=== PATIENT | female | born 1985 | race African-American/Black ===

== ENCOUNTER 2020-09-27 14:47 | Emergency (ER) | payer OTHER ==
[2020-09-27] MEDS ORDERED: ACETAMINOPHEN 500 MG TABLET (FP) PO ONE (15:00)
[2020-09-27] MEDS ORDERED: ACETAMINOPHEN 325 MG TABLET (FP) ONE (15:00)
[2020-09-27] MEDS ORDERED: SODIUM CHLORIDE 0.9% 500 ML INFUS.BAG IV ONE (15:03)
[2020-09-27 15:09] VITALS: TEMP 99.3; BMI 28.5
[2020-09-27 15:24] LABS: BASO % 0.5 % (0-2.0); EOS % 0.8 % (0-4.5); HEMATOCRIT 24.9 % (32.4-45.2); HEMOGLOBIN 8.8 GM/dL (10.7-15.3); LYMPH % 15.4 % (8-40); MCH 29.3 pg (25.7-33.7); MCHC 35.4 g/dl (32.0-36.0); MEAN CELL VOLUME 82.7 fl (80-96); MEAN PLT VOLUME 8.3 fl (7.5-11.1); MONO % 6.7 % (3.8-10.2); NEUT % 76.6 % (42.8-82.8); PLATELET COUNT 273 K/MM3 (134-434); RBC 3.01 M/mm3 (3.60-5.2)
[2020-09-27 15:48] LABS: CALCIUM 8.9 mg/dL (8.5-10.1)
[2020-09-27 15:49] LABS: BLOOD UREA NITROGEN 6.4 mg/dL (7-18)
[2020-09-27 15:52] LABS: CREATININE 0.6 mg/dL (0.55-1.3)
[2020-09-27 15:53] LABS: BILIRUBIN,TOTAL 0.5 mg/dL (0.2-1)
[2020-09-27 15:55] LABS: TOT PROT 6.5 g/dl (6.4-8.2)
[2020-09-27 16:53] LABS: EPI CELLS 36 /uL (0-25.1); HYALINE CASTS 1 /uL (0-3.1); URINE APPEARANCE CLEAR; URINE BACTERIA 204 /uL (0-1359); URINE BILIRUBIN NEGATIVE (NEGATIVE); URINE COLOR DK YELLOW; URINE GLUCOSE (UA) NEGATIVE (NEGATIVE); URINE KETONE TRACE (NEGATIVE); URINE LEUK ESTERASE TRACE (NEGATIVE); URINE NITRITE NEGATIVE (NEGATIVE); URINE PROTEIN 2+ (NEGATIVE); URINE WBC 14 /uL (0-25.8)
[2020-09-27 17:08] LABS: URINE RBC 67.4 /uL (0-23.9)
[2020-09-27 17:57] VITALS: BP 104/69; PULSE 88
[2020-09-28 10:07] LABS: SARS-CoV-2 NAA Not Detected (Not Detected)
== END 2020-09-27 17:57 | disposition home or self-care (01) ==
LOC: JER 14:47
DX: J06.9 Acute upper respiratory infection, unspecified (principal)
CPT/HCPCS: 36415; 71045-TC-FY; 80053; 81003; 85025; 87086; 87880; 99284-25; C9803; U0003; U0005

== ENCOUNTER 2020-11-30 06:30 | Inpatient (IN) | payer OTHER ==
[2020-11-30] MEDS ORDERED: CITRIC ACID/SODIUM CITRATE 30 ML UNIT-DOSE CUP PO ONE (07:08)
[2020-11-30] MEDS ORDERED: ACETAMINOPHEN 325 MG TABLET (FP) PO PRN (07:09)
[2020-11-30] MEDS ORDERED: BENZOCAINE 28 GM HEMORRHOIDAL OINTMENT TP PRN (07:09)
[2020-11-30] MEDS ORDERED: METHYLERGONOVINE MALEATE 0.2 MG/1 ML AMP IM PRN (07:09)
[2020-11-30] MEDS ORDERED: WITCH HAZEL 50% (TUCKS) 40 PAD/JAR PAD TP PRN (07:09)
[2020-11-30] MEDS ORDERED: BENZOCAINE 20% 57 GM BOTTLE TP PRN (07:09)
[2020-11-30] MEDS ORDERED: IBUPROFEN 800 MG/8 ML IJ IVPB PRN (07:09)
[2020-11-30] MEDS ORDERED: ELECTROLYTE-148 SOLN 1,000 ML IV SCH (07:15)
[2020-11-30] MEDS ORDERED: OXYTOCIN 20 UNITS in 0.9% NS 20 UNIT/1,000 ML INFUS.BAG IV SCH (07:15)
[2020-11-30 09:20] VITALS: BMI 32.4
[2020-11-30] MEDS ORDERED: ePHEDrine SULFATE 50 MG/1 ML AMPULE ONE (11:14)
[2020-11-30] MEDS ORDERED: ONDANSETRON 4 MG/2 ML VIAL ONE ×2 (11:15→11:50)
[2020-11-30] MEDS ORDERED: PHENYLEPHRINE HCL 10 MG/1 ML SINGLE DOSE VIAL ONE (11:15)
[2020-11-30] MEDS ORDERED: KETOROLAC TROMETHAMINE 30 MG/1 ML VIAL ONE (11:15)
[2020-11-30] MEDS ORDERED: OXYTOCIN 10 UNITS/ML VIAL ONE (11:15)
[2020-11-30] MEDS ORDERED: CLINDAMYCIN PHOSPHATE 600 MG/4 ML VIAL ONE (11:15)
[2020-11-30] MEDS ORDERED: SUCCINYLCHOLINE CHLORIDE 200 MG/10 ML SYRINGE ONE (11:48)
[2020-11-30] MEDS ORDERED: PROPOFOL 20 ML ONE ×2 (11:49)
[2020-11-30] MEDS ORDERED: GENTAMICIN SO4 80 MG/2 ML VIAL ONE (11:54)
[2020-11-30] MEDS ORDERED: AZITHROMYCIN IVPB 500 MG/250 ML BAG IVPB ONE (11:55)
[2020-11-30] MEDS ORDERED: LIDOCAINE HCL/PF 2% SDV 5ML VIAL ONE (11:57)
[2020-11-30] MEDS ORDERED: TRIAMCINOLONE ACET 40MG/1ML VIAL IM ONE (12:15)
[2020-11-30 13:01] LABS: CORD BASE EXCESS -4.7 mmol/L (0-2); CORD HCO3 23.7 mmHg (20-29); CORD PCO2 57.5 mmHg (30-78); CORD pH 7.233 (7.14-7.44)
[2020-11-30 13:03] LABS: CORD BASE EXCESS -3.3 mmol/L (0-2); CORD HCO3 22.4 mmHg (20-29); CORD PCO2 42.3 mmHg (30-78); CORD pH 7.341 (7.14-7.44)
[2020-11-30] MEDS: IBUPROFEN 800 MG/8 ML IJ IVPB PRN (17:46)
[2020-12-01] MEDS: IBUPROFEN 800 MG/8 ML IJ IVPB PRN ×2 (01:39→08:45)
[2020-12-01] MEDS: SIMETHICONE 80 MG TAB.CHEW (FP) PO PRN ×2 (04:37→18:35)
[2020-12-01] MEDS ORDERED: oxyCODONE HCL 5 MG TABLET PO PRN (07:09)
[2020-12-01] MEDS ORDERED: BISACODYL 10 MG SUPP.RECT RC PRN (07:09)
[2020-12-01 08:44] LABS: BASO % 0.6 % (0-2.0); EOS % 0.6 % (0-4.5); HEMATOCRIT 22.7 % (32.4-45.2); HEMOGLOBIN 7.9 GM/dL (10.7-15.3); LYMPH % 14.3 % (8-40); MCH 29.2 pg (25.7-33.7); MCHC 34.8 g/dl (32.0-36.0); MEAN CELL VOLUME 83.9 fl (80-96); MEAN PLT VOLUME 8.7 fl (7.5-11.1); MONO % 6.5 % (3.8-10.2); PLATELET COUNT 257 10^3/uL (134-434); RBC 2.71 M/mm3 (3.60-5.2); RDW 13.2 % (11.6-15.6); WHITE BLOOD COUNT 9.2 K/mm3 (4.0-10.0)
[2020-12-01] MEDS ORDERED: DIPHTH,PERTUSS(ACELL),TET 0.5 ML DISP.SYRIN IM ONE (09:00)
[2020-12-01] MEDS: PRENATAL VITAMINS W/ FOLIC ACID TABLET (FP) PO SCH (09:22)
[2020-12-01] MEDS: FERROUS SO4 325 MG TABLET (FP) PO SCH ×2 (09:22→21:42)
[2020-12-01] MEDS: oxyCODONE HCL 5 MG TABLET PO PRN ×2 (18:35→21:41)
[2020-12-02] MEDS: IBUPROFEN 600 MG TABLET (FP) PO PRN (05:27)
[2020-12-02] MEDS: FERROUS SO4 325 MG TABLET (FP) PO SCH ×2 (09:53→23:04)
[2020-12-02] MEDS: PRENATAL VITAMINS W/ FOLIC ACID TABLET (FP) PO SCH (09:53)
[2020-12-02 10:44] LABS: BASO % 0.7 % (0-2.0); EOS % 1.2 % (0-4.5); HEMATOCRIT 19.5 % (32.4-45.2); LYMPH % 18.5 % (8-40); MCH 29.3 pg (25.7-33.7); MCHC 35.3 g/dl (32.0-36.0); MEAN CELL VOLUME 83.2 fl (80-96); MEAN PLT VOLUME 7.9 fl (7.5-11.1); MONO % 7.9 % (3.8-10.2); NEUT % 71.7 % (42.8-82.8); PLATELET COUNT 273 10^3/uL (134-434); RBC 2.35 M/mm3 (3.60-5.2); RDW 13.3 % (11.6-15.6); WHITE BLOOD COUNT 9.2 K/mm3 (4.0-10.0)
[2020-12-02 10:54] LABS: HEMOGLOBIN 6.9 GM/dL (10.7-15.3)
[2020-12-02] MEDS: SIMETHICONE 80 MG TAB.CHEW (FP) PO PRN ×2 (16:31→23:04)
[2020-12-02] MEDS: oxyCODONE HCL 5 MG TABLET PO PRN (16:31)
[2020-12-03 08:25] LABS: BASO % 0.8 % (0-2.0); EOS % 1.6 % (0-4.5); HEMATOCRIT 26.3 % (32.4-45.2); HEMOGLOBIN 9.3 GM/dL (10.7-15.3); MCH 29.6 pg (25.7-33.7); MCHC 35.5 g/dl (32.0-36.0); MEAN CELL VOLUME 83.4 fl (80-96); MEAN PLT VOLUME 8.2 fl (7.5-11.1); MONO % 6.9 % (3.8-10.2); NEUT % 71.7 % (42.8-82.8); PLATELET COUNT 306 10^3/uL (134-434); RBC 3.15 M/mm3 (3.60-5.2); RDW 13.1 % (11.6-15.6); WHITE BLOOD COUNT 10.2 K/mm3 (4.0-10.0)
[2020-12-03] MEDS: SIMETHICONE 80 MG TAB.CHEW (FP) PO PRN (08:30)
[2020-12-03] MEDS: IBUPROFEN 600 MG TABLET (FP) PO PRN (08:30)
[2020-12-03] MEDS: PRENATAL VITAMINS W/ FOLIC ACID TABLET (FP) PO SCH (10:36)
[2020-12-03] MEDS: FERROUS SO4 325 MG TABLET (FP) PO SCH (10:36)
[2020-12-03 11:24] VITALS: BP 118/67; PULSE 87; TEMP 98.5
== END 2020-12-03 16:15 | disposition home or self-care (01) | DRG 540 ==
LOC: JLDR 06:30 → J3W 15:21
PROVIDERS: ADMIT Obstetrics & Gynecology; ATTEND Obstetrics & Gynecology
PROC: 10D00Z1 Extraction of Products of Conception, Low, Open Approach (ICD-10-PCS; 2020-11-30)
PROC: 30233N1 Transfusion of Nonautologous Red Blood Cells into Peripheral Vein, Percutaneous Approach (ICD-10-PCS; principal; 2020-12-02)
DX: O34.29 Maternal care due to uterine scar from other previous surgery (principal); Z3A.38 38 weeks gestation of pregnancy; Z37.0 Single live birth; O99.214 Obesity complicating childbirth; O99.03 Anemia complicating the puerperium; D64.9 Anemia, unspecified; O69.81X0 Labor and delivery complicated by cord around neck, without compression, not applicable or unspecified
CPT/HCPCS: 36415; 36430; 36600; 80053; 80076; 81003; 82803; 84702; 84703; 85025; 85610; 85730; 86780; 86850; 86900; 86901; 86922; 88307-TC; 90715; C9803; P9058; U0003; U0005

== ENCOUNTER 2022-12-16 10:23 | Emergency (ER) | payer OTHER ==
[2022-12-16 10:34] VITALS: BMI 21.7
[2022-12-16] MEDS ORDERED: LACTATED RINGERS SOLUTION 1000 ML INFUS.BAG IV ONE (11:29)
[2022-12-16] MEDS ORDERED: ACETAMINOPHEN 1000 MG/100 ML BAG IVPB ONE (11:29)
[2022-12-16] MEDS ORDERED: METOCLOPRAMIDE HCL INJECTION 10 MG/2 ML VIAL IVPB ONE (11:32)
[2022-12-16] MEDS ORDERED: ACETAMINOPHEN INJECTION 100 ML IVPB ONE (11:43)
[2022-12-16] MEDS ORDERED: METOCLOPRAMIDE HCL INJECTION 10 MG/2 ML VIAL ONE (11:43)
[2022-12-16 12:33] LABS: BASO % 1.4 % (0-2.0); EOS % 0.1 % (0-4.5); HEMATOCRIT 32.4 % (32.4-45.2); LYMPH % 23.1 % (8-40); MCH 27.3 pg (25.7-33.7); MCHC 33.8 g/dl (32.0-36.0); MEAN CELL VOLUME 80.8 fl (80-96); MEAN PLT VOLUME 8.3 fl (7.5-11.1); NEUT % 68.4 % (42.8-82.8); PLATELET COUNT 292 10^3/uL (134-434); RBC 4.02 M/mm3 (3.60-5.2); RDW 13.2 % (11.6-15.6); WHITE BLOOD COUNT 5.3 K/mm3 (4.0-10.0)
[2022-12-16 12:39] LABS: INR 1.1 (0.83-1.09); PROTHROMBIN TIME (PATIENT) 12.8 SEC (9.7-13.0)
[2022-12-16 12:42] LABS: ACTIVATED PTT 27.8 SECONDS (25.2-36.5)
[2022-12-16 12:55] LABS: POTASSIUM 4.1 mmol/L (3.5-5.1)
[2022-12-16 12:59] LABS: ALBUMIN 3.7 g/dl (3.4-5.0); BLOOD UREA NITROGEN 7.8 mg/dL (7-18); MAGNESIUM 1.8 mg/dL (1.8-2.4)
[2022-12-16 13:01] LABS: CREATININE 0.7 mg/dL (0.55-1.3)
[2022-12-16 13:03] LABS: TOT PROT 7.3 g/dl (6.4-8.2)
[2022-12-16 13:04] LABS: BILIRUBIN,TOTAL 0.5 mg/dL (0.2-1)
[2022-12-16 14:18] LABS: URINE APPEARANCE CLEAR; URINE BILIRUBIN NEGATIVE (NEGATIVE); URINE COLOR YELLOW; URINE GLUCOSE (UA) NEGATIVE (NEGATIVE); URINE KETONE NEGATIVE (NEGATIVE); URINE LEUK ESTERASE NEGATIVE (NEGATIVE); URINE NITRITE NEGATIVE (NEGATIVE); URINE PROTEIN NEGATIVE (NEGATIVE); URINE UROBILINOGEN 0.2 mg/dL (0.2-1.0)
[2022-12-16] MEDS ORDERED: KETOROLAC TROMETHAMINE 15 MG/ML VIAL IVPUSH ONE (17:07)
[2022-12-16 17:12] VITALS: BP 105/72; PULSE 80; RESP 18; TEMP 98.1
[2022-12-16] MEDS ORDERED: KETOROLAC TROMETHAMINE 15 MG/ML VIAL ONE (17:14)
== END 2022-12-16 21:33 | disposition home or self-care (01) ==
LOC: JER 10:23
PROC: 3E033GC Introduction of Other Therapeutic Substance into Peripheral Vein, Percutaneous Approach (ICD-10-PCS; principal; 2022-12-16)
PROC: 3E033GC Introduction of Other Therapeutic Substance into Peripheral Vein, Percutaneous Approach (ICD-10-PCS; 2022-12-16)
PROC: 3E033GC Introduction of Other Therapeutic Substance into Peripheral Vein, Percutaneous Approach (ICD-10-PCS; 2022-12-16)
DX: M54.2 Cervicalgia (principal); R51.9 Headache, unspecified; R53.1 Weakness
CPT/HCPCS: 0241U-QW; 36415; 70450-TC; 70544-TC; 70551-TC; 71045-TC-FY; 76801-TC; 80053; 81003; 82962; 83605; 83735; 84702; 84703; 85025; 85610; 85730; 86850; 86900; 86901; 87040; 87086; 93005; 93010; 99285-25

== ENCOUNTER 2024-10-28 15:11 | Emergency (ER) | payer OTHER ==
[2024-10-28 15:49] VITALS: BP 117/75; PULSE 84; RESP 16; TEMP 98.5; BMI 31.8
[2024-10-28 17:12] LABS: ABSOLUTE IMMATURE GRANULOCYTES 0.01 x10^3/uL (0.0-0.031); BASOPHILS # 0.08 x10^3/uL (0.01-0.08); EOSINOPHIL % 1.5 % (0.7-5.8); EOSINOPHILS # 0.11 x10^3/uL (0.04-0.36); MCHC 33.7 g/dl (32.2-35.5); MEAN CELL VOLUME 80.4 fl (79.4-94.8); MEAN PLT VOLUME 10.3 fl (9.4-12.3); MONOCYTE # 0.54 x10^3/uL (0.24-0.86); MONOCYTE % 7.4 % (4.7-12.5); RDW 13.5 % (12.1-16.8)
[2024-10-28 17:16] LABS: EPI CELLS 25 /uL (0-25.1); HYALINE CASTS 0 /uL (0-3.1); URINE APPEARANCE CLOUDY; URINE BACTERIA 239 /uL (0-1359); URINE BILIRUBIN NEGATIVE (NEGATIVE); URINE COLOR DK YELLOW; URINE GLUCOSE (UA) NEGATIVE (NEGATIVE); URINE KETONE TRACE (NEGATIVE); URINE LEUK ESTERASE TRACE (NEGATIVE); URINE NITRITE NEGATIVE (NEGATIVE); URINE PROTEIN 1+ (NEGATIVE); URINE RBC 3317 /uL (0-23.9); URINE UROBILINOGEN 1.0 mg/dL (0.2-1.0); URINE WBC 28 /uL (0-25.8)
[2024-10-28 17:58] LABS: CO2 28.0 mmol/L (21-32); GLUCOSE,RANDOM 92.0 mg/dL (74-106)
[2024-10-28 18:01] LABS: CREATININE 0.7 mg/dL (0.55-1.3); SGPT/ALT 16.0 U/L (13-61)
[2024-10-28 18:03] LABS: SGOT/AST 13.0 U/L (15-37); TOT PROT 7.4 g/dl (6.4-8.2)
[2024-10-28 18:04] LABS: ALK PHOS 66.0 U/L (45-117)
[2024-10-28 19:10] LABS: HCV DIAGNOSTIC IN-HOUSE W/RFLX NON-REACTIVE (NONREACTIVE)
[2024-10-28 19:11] LABS: HIV INTERPRETATION NEGATIVE (NEGATIVE)
== END 2024-10-28 18:52 | disposition home or self-care (01) ==
LOC: JER 15:11
DX: O03.9 Complete or unspecified spontaneous abortion without complication (principal)
CPT/HCPCS: 36415; 76817-TC; 80053; 81003; 84702; 85025; 86803; 87086; 87389; 99284-25